=== PATIENT | male | born 2000 | race Two or more races ===

== ENCOUNTER 2021-11-19 12:08 | Emergency (ER) | payer SELFPAY ==
[~2021-11-19] VITALS: Ht 177.8 cm; Wt 86.2 kg
[2021-11-19 13:21] VITALS: BP 141/76
[2021-11-19] MEDS ORDERED: IBUPROFEN 800 MG TAB PO ONE (13:30)
[2021-11-19] MEDS ORDERED: IBUP800T27 PO (13:36)
== END 2021-11-19 13:38 | disposition home or self-care (01) ==
LOC: EDBD 12:08 → ER 12:08
DX: S92.001A Unspecified fracture of right calcaneus, initial encounter for closed fracture (principal); W19.XXXA Unspecified fall, initial encounter; Y93.89 Activity, other specified; Y92.89 Other specified places as the place of occurrence of the external cause; Y99.8 Other external cause status
CPT/HCPCS: 29515; 73610; 73650